=== PATIENT | male | born 1935 | race Caucasian/White ===

== ENCOUNTER 2021-06-14 11:09 | Emergency (ER) | payer MEDICARE ==
[~2021-06-14] VITALS: Ht 177.8 cm; Wt 84.0 kg
[2021-06-14 11:17] VITALS: BP 177/123
[2021-06-14] MEDS ORDERED: LISINOPRIL10 MG PO (11:25)
[2021-06-14] MEDS ORDERED: LORATADINE10 M1 PO (11:25)
[2021-06-14] MEDS ORDERED: ARICEPT PO (11:25)
[2021-06-14] MEDS ORDERED: TYLENOL500 MG PO (11:26)
[2021-06-14] MEDS ORDERED: ASPIRIN81 MG PO (11:26)
[2021-06-14] MEDS ORDERED: ALTOPREV40 MG PO (11:27)
[2021-06-14] MEDS ORDERED: NORVASC5 M1 PO (11:27)
[2021-06-14] MEDS ORDERED: TOPROL XL200 M1 PO (11:28)
[2021-06-14] MEDS ORDERED: MEMANTINE (11:28)
[2021-06-14] MEDS ORDERED: [UNRECOGNIZED DRUG - OTHER] (11:28)
[2021-06-14] MEDS ORDERED: QUETIAPINE FUMA25 MG PO (11:29)
[2021-06-14] MEDS ORDERED: WARFARIN5 MG PO (11:30)
[2021-06-14 11:31] VITALS: BP 144/94
[2021-06-14] MEDS ORDERED: FLEXERIL5 M1 PO (11:46)
[2021-06-14 12:02] VITALS: BP 147/99
[2021-06-14 12:05] VITALS: BP 147/99
== END 2021-06-14 12:05 | disposition home or self-care (01) ==
LOC: ED 11:09
DX: S56.912A Strain of unspecified muscles, fascia and tendons at forearm level, left arm, initial encounter (principal); I10 Essential (primary) hypertension; X58.XXXA Exposure to other specified factors, initial encounter; Y93.53 Activity, golf; Z85.46 Personal history of malignant neoplasm of prostate

== ENCOUNTER 2021-06-22 18:21 | Inpatient (IN) | payer MEDICARE ==
[~2021-06-22] VITALS: Ht 177.8 cm; Wt 87.0 kg
[2021-06-22] VITALS (10 sets, daily range): BP systolic 94–143; BP diastolic 58–84
[~2021-06-22 18:21] MED LIST: ALTOPREV40 MG PO; ARICEPT PO; ASPIRIN81 MG PO; FLEXERIL5 M1 PO; LORATADINE10 M1 PO; MEMANTINE PO; NORVASC5 M1 PO; QUETIAPINE FUMA25 MG PO; TOPROL XL200 M1 PO; TYLENOL500 MG PO; WARFARIN5 MG PO; ZESTRIL40 MG PO; [UNRECOGNIZED DRUG - OTHER] PO
--- NOTE | 2021-06-22 18:22 | NUR ---
PT TO ED ROOM 11 VIA WHEELCHAIR. PT UNABLE TO STAND, TRANSFERRED TO ED BED WITH 4 ED NURSES. PT REPOSITIONED IN BED AND CHANGED INTO GOWN. PT IN NO DISTRESS, BUT IS VERY DIAPHORETIC. COOL CLOTH APPLIED TO FOREHEAD. PT NOTED TO BE FEBRILE. PROVIDER NOTIFIED. PT'S AT THE BEDSIDE. PT STABLE.
[2021-06-22] MEDS ORDERED: ARNUITY EL50 MCG/ACT NS (18:39)
[2021-06-22 18:51] LABS: HEMATOCRIT 49.3 % (39.0-50.0); HEMOGLOBIN 16.2 g/dl (14.0-18.0); IMMATURE GRANULOCYTES 0.2 % (0.0-5.0); MEAN CELL VOLUME 85.7 fL CALC (80.0-100.0); MEAN CORPUSCULAR HGB 28.2 pG CALC (26.0-32.0); MEAN CORPUSCULAR HGB CONC 32.9 g/dL CAL (32.0-36.0); NEUT# 7.42 thou/uL (1.82-7.42); RED BLOOD COUNT 5.75 mill/uL (4.70-6.10)
[2021-06-22 19:02] LABS: ALBUMIN 4.5 g/dL (3.2-5.0); ALKALINE PHOSPHATASE 192 u/l (38-126); ANION GAP 19 (6-22 (CALC)); BILIRUBIN, TOTAL 5.6 mg/dL (0.0-1.4); BUN 28 mg/dL (8-23); BUN/CREATININE RATIO 21 (12-20 (CALC)); CARBON DIOXIDE 22 mmol/l (22-30); CHLORIDE 102 mmol/l (95-108); CREATININE 1.3 mg/dL (0.7-1.3); GFR 53 ML/MIN (>=60 (CALC)); GFR FOR AFR.AMER. > 60 ML/MIN (>=60 (CALC)); LIPASE 200 u/l (23-300); POTASSIUM 4.2 mmol/l (3.5-5.1); SGOT/AST 173 u/l (19-48); SODIUM 139 mmol/l (137-146); TOTAL PROTEIN 8.5 g/dL (6.3-8.2)
[2021-06-22 19:07] LABS: INTERNATIONAL NORMALIZED RATIO 2.5 RATIO (0.7-1.3); PROTHROMBIN TIME 25.1 SECONDS (9.0-12.5)
--- NOTE | 2021-06-22 19:08 | NUR ---
PT BACK FROM IMAGING AND PT'S AND DAUGHTER AT THE BEDSIDE. PT'S SKIN PWD AT THIS TIME, NO LONGER DIAPHORETIC. PT MORE ALERT AND SPEAKING MORE CLEARLY. PT STABLE AT THIS TIME, WILL CONTINUE TO MONITOR.
[2021-06-22 19:14] LABS: MYOGLOBIN 98 ng/mL (0 - 121)
[2021-06-22 19:28] LABS: URINE BLOOD DIPSTICK MODERATE (NEGATIVE); URINE GLUCOSE - DIPSTICK 100 mg/dL (NEGATIVE); URINE KETONE NEGATIVE (NEGATIVE); URINE LEUK ESTERASE NEGATIVE (NEGATIVE); URINE PROTEIN - DIPSTICK >=300 mg/dL (NEG-TRACE); URINE SPECIFIC GRAVITY >=1.030; URINE UROBILINOGEN - DIPSTICK 0.2 E.U./dL (0.2)
[2021-06-22 19:29] LABS: URINE BILIRUBIN - DIPSTICK MODERATE (NEGATIVE)
[2021-06-22 19:30] LABS: URINE COLOR DK. YELLOW; URINE NITRITE - DIPSTICK NEGATIVE (Negative)
--- NOTE | 2021-06-22 19:30 | NUR ---
CHARTED IN MED RESPONSE 1000MG TYLENOL GIVEN, 650 WAS ADMINISTERED ORDER
[2021-06-22 19:36] LABS: URINE WBC 0-2 WBC/hpf (0-5)
--- NOTE | 2021-06-22 20:05 | NUR ---
Reassessment of patient completed. No distress noted.
--- NOTE | 2021-06-22 21:05 | NUR ---
DR COX IN TO SPEAK WITH PT AND HIS TO DISCUSS RESULTS AND POC. PT TO BE ADMITTED. PT AND AGREEABLE WITH POC. PT'S VSS, SKIN, PWD, BREATHING UNLABORED AND EVEN. PT TAKING IN PO FLUIDS. PT STABLE, WILL CONTINUE TO MONITOR.
--- NOTE | 2021-06-22 21:54 | NUR ---
CALL PLACED TO MED/SURG TO GIVE SBAR. RN WILL CALL BACK SHORTLY. PT COMFORTABLE AT THIS TIME. VSS. DENIES NEEDS.
--- NOTE | 2021-06-22 22:09 | NUR ---
SBAR REPORT GIVEN TO NOHEMI BALDWIN MED/SURG.
--- NOTE | 2021-06-22 22:14 | NUR ---
PT TAKEN TO MED/SURG WITH AUDIOVISUAL TECHNICIAN IN PLACE VIA STRETCHER. PT IN STABLE CONDITION AT TIME OF ADMISSION. ALL BELONGINGS AND PAPERWORK HANDED OFF TO STAFF.
--- NOTE | 2021-06-22 23:39 | NUR ---
ADMITTED TO ROOM 260 FROM ED IN STABLE CONDITION. A/O X 3 DOES HAVE SOME FORGETFULLNESS. RESPIRATIONS EVEN AND UNLABORED. LUNGS CLEAR. BS ACTIVE BELLY SOFT AND ROUND. NO BLE EDEMA NOTED. PIV WDL. EDUCTED PT ON NEED TO CALL FOR ASSIST OOB, STATES UNDERSTANDING, BED ALARM ACTIVE. CALL ROBB IN REACH SIDE RAILS UP.
[2021-06-23] VITALS (12 sets, daily range): BP systolic 117–163; BP diastolic 74–94
--- NOTE | 2021-06-23 00:32 | NUR ---
RESTING IN BED EYES CLOSED VSS
[2021-06-23 05:02] LABS: HEMATOCRIT 44.8 % (39.0-50.0); HEMOGLOBIN 14.5 g/dl (14.0-18.0); MEAN CELL VOLUME 88.2 fL CALC (80.0-100.0); MEAN CORPUSCULAR HGB 28.5 pG CALC (26.0-32.0); MEAN CORPUSCULAR HGB CONC 32.4 g/dL CAL (32.0-36.0); RED BLOOD COUNT 5.08 mill/uL (4.70-6.10); RED CELL DISTRI WIDTH 15.3 % (11.5-15.5)
[2021-06-23 05:24] LABS: INTERNATIONAL NORMALIZED RATIO 2.1 RATIO (0.7-1.3); PROTHROMBIN TIME 21.3 SECONDS (9.0-12.5)
[2021-06-23 05:33] LABS: ALBUMIN 3.3 g/dL (3.2-5.0); ALKALINE PHOSPHATASE 143 u/l (38-126); ANION GAP 12 (6-22 (CALC)); BILIRUBIN, TOTAL 3.7 mg/dL (0.0-1.4); BUN 23 mg/dL (8-23); BUN/CREATININE RATIO 20 (12-20 (CALC)); CARBON DIOXIDE 21 mmol/l (22-30); CHLORIDE 110 mmol/l (95-108); CREATININE 1.2 mg/dL (0.7-1.3); GFR 58 ML/MIN (>=60 (CALC)); GFR FOR AFR.AMER. > 60 ML/MIN (>=60 (CALC)); POTASSIUM 3.9 mmol/l (3.5-5.1); SGOT/AST 98 u/l (19-48); SODIUM 139 mmol/l (137-146); TOTAL PROTEIN 6.2 g/dL (6.3-8.2)
--- NOTE | 2021-06-23 06:48 | NUR ---
CALLED FOR STAT EKG. PT WAS SHIVERING THROUGHOUT TEST, AND MULTIPLE ATTEMPTS TO GET THE BEST TRACING. RN UPDATED ON TRACING.
--- NOTE | 2021-06-23 06:53 | NUR ---
HR 120-150 DR BOWERS NOTIFED. STAT EKG OBTAINED PT IN AFIB RVR. HAS HX OF AFIB RVR. PT DOES HAVE TEMP AND IS SHIVERING GREATLY. MEDICATED WITH TYLENOL PER MD TO SEE IF SHIVERING WILL STOP, NO C/O CHEST PAIN AT THIS TIME.
--- NOTE | 2021-06-23 07:00 | NUR ---
RECIEVED REPORT FROM NOHEMI PENALOZA. PT SLEEPING IN SEMI FOWLERS POSITION. TELE MONITORING IN PLACE, AFIB RVR PER ER MONITORING. DR BOWERS INFORMED. ORDERS IN PLACE. NO SIGNS OF ANY DISTRESS. WILL CONTINUE TO MONITOR.
--- NOTE | 2021-06-23 08:01 | NUR ---
PT RESTING IN SEMI FOWLERS POSITION. PT A/OX3. ASSESSMENT AND VITALS COMPLETED. RESPIRATIONS EVEN AND UNLABORED ON ROOM AIR. LUNG SOUNDS CLEAR. HEART RHYTHM IRREGULAR WITH TELE MONITORING IN PLACE. AFIB PER ER MONITORING. BOWEL SOUNDS ACTIVE. #20G LAC INFUSING WITH IVF PER ORDER, SITE PATENT. SKIN INTACT. PT DENIES OF ANY PAINS AT THIS TIME. ALL SAFTEY PRECAUTIONS ARE IN PLACE WITH CALL LIGHT IN REACH. PT INSTRUCTED TO CALL FOR ASSISTANCE.,
--- NOTE | 2021-06-23 09:40 | NUR ---
DR BOWERS AT BEDSIDE
--- NOTE | 2021-06-23 10:07 | NUR ---
PT TRANSPORTED TO ULTRASOUND VIA WHEELCHAIR ACCOMPAINED BY KE SAHA
--- NOTE | 2021-06-23 10:23 | NUR ---
INFORMED BY RADIOLOGY THAT MRI IS UNABLE TO BE COMPLETED DUE TO PENILE IMPLANT. DR BOWERS INFORMED.
--- NOTE | 2021-06-23 11:19 | NUR ---
PT BACK IN ROOM. RESTING IN SEMI FOWLERS POSITION. RESPIRATIONS EVEN AND UNLABORED. TELE MONITORING IN PLACE. IV INFUSING PER ORDER, SITE PATENT. PT DENIES OF ANY NEEDS. ALL SAFTEY PRECAUTIONS IN PLACE. PT REMAINS NPO
--- NOTE | 2021-06-23 11:55 | NUR ---
ENGINEERING DEPARTMENT CHAIR INFROMED BY KENZIE IN LAB OF [facility] IN 03.02. DR ELISSA CHASE.
--- NOTE | 2021-06-23 12:40 | NUR ---
PT RESTING IN SEMI FOWLERS POSITION.FAMILY AT BEDSIDE. DR YIP CONSULT COMPLETED AT THIS TIME. IV REMAINS INFUSING WITH IVF PER ORDER, SITE PATENT. TELE MONITORING IN PLACE. PT DENIES OF ANY NEEDS. ALL SAFTEY PRECAUTIONS IN PLACE WITH CALL LIGHT IN REACH.
--- NOTE | 2021-06-23 13:57 | NUR ---
PT TRANSPORTED TO MRI VIA WHEELCHAIR ACCOMPAINED BY STAFF
--- NOTE | 2021-06-23 14:30 | NUR ---
PT ARRIVED BACK FROM MRI. ASSISTED BACK INTO BED. TELE IN PLACE. DENIES OF ANY NEEDS. ALL SAFTEY PRECAUTIONS IN PLACE.
--- NOTE | 2021-06-23 14:30 | NUR ---
PT ARRIVED BACK FROM MRI. ASSISTED BACK INTO BED. DENIES OF ANY NEEDS. ALL SAFTEY PRECAUTIONS IN PLACE.
--- NOTE | 2021-06-23 15:45 | NUR ---
PT RESTING IN SEMI FOWLERS POSITION WITH FAMILY AT BEDSIDE. REPSIRATIONS EVEN AND UNLABORED ON ROOM AIR. #20G LAC REMAINS INFUSING WITH IVF PER ORDER, SITE PATENT. TELE MONITORING IN PLACE. PT DENIES OF ANY NEEDS AT THIS TIME. ALL SAFTEY PRECAUTIONS ARE IN PLACE WITH CALL LIGHT IN REACH.
--- NOTE | 2021-06-23 15:45 | NUR ---
PT RESTING IN SEMI FOWLERS POSITION WITH FAMILY AT BEDSIDE. REPSIRATIONS EVEN AND UNLABORED ON ROOM AIR. #20G LAC REMAINS INFUSING WITH IVF PER ORDER, SITE PATENT. PT DENIES OF ANY NEEDS AT THIS TIME. ALL SAFTEY PRECAUTIONS ARE IN PLACE WITH CALL LIGHT IN REACH.
--- NOTE | 2021-06-23 16:44 | NUR ---
SURVEY RESEARCH TEACHER INFORMED OF PT OFF TELE. PT IN BATHROOM AT THE TIME. WHEN BACK IN BED, SURVEY RESEARCH TEACHER ATTEMPTED TO REAPPLY TELE. NO TELE FOUND. PT STATES TEHY TOOK TELE OFF DOWN STAIRS. RADIOLOGY CALLED, SURVEY RESEARCH TEACHER INFORMED THEY DID HAVE A TELE BUT THOUGHT THEY BROUGHT IT UP. TELE #9 NOT FOUND. ER INFORMED IN ATTEMPTED TO REAPPLIED DIFFERENT BOX UNTIL ORIGINAL BOX FOUND.
--- NOTE | 2021-06-23 17:00 | NUR ---
TELE FOUND. PT REQUESTING TO SHOWER AT THIS TIME. PT SET UP FOR SHOWER. INSTRUCTED PT TO CALL WHEN FINISHED TO REAPPLY TELE. PT VERBALIZED UNDERSTANDING.
--- NOTE | 2021-06-23 18:30 | NUR ---
PT TRANSFERED TO ROOM 281 VIA BED IN STABLED CONDITION. REGISTRATION AND ER INFORMED OF TRANSFER.
--- NOTE | 2021-06-23 19:56 | NUR ---
RESTING IN BED. VS STABLE HR 110 AT THIS TIME. A/OX4 RESPIRATIONS EVEN AND UNLABORED. CRACKLES TO LUNG BASES. BS ACTIVE BELLY SOFT AND ROUND. NO BLE EDEMA NOTED. PIV WDL. BED LOW AND LOCKED CALL ROBB IN REACH SIDE RAILS UP.
--- NOTE | 2021-06-23 21:40 | NUR ---
NOTIFIED BY TELE MONITOR OF HR 150-180 ENTERED ROOM PT WAS UP TO BATHRROM. RETURNED PT TO BED AND EDUCATED ON HR, PT ASYMPTOMATIC. DR DESAI NOTIFIED T/O VERIFIED AND READ BACK FOR METOPROLOL 5MG IV Q6HR PRN HR GREATER THAN 110 AND SYSTOLIC GREATER THAN 120
--- NOTE | 2021-06-23 22:32 | NUR ---
PER NURSING DRUG ROOM OPERATOR SUKHI HE WANTS PT MOVED TO ICU ROOM 3 . STATES HE DOES NOT WANT TO WAIT AND SEE IF METOPROLOL WORKS PER MD ORDER
--- NOTE | 2021-06-23 22:40 | NUR ---
rec'd to icu3 per carmelita from [facility]. report rec'd per chaparrita singh. property assessment monitor shows a fib pvcs hr 130. o2 began @ 2 l/m per nc. ivf began as ordered. oriented to room. bed alarm activated.
--- NOTE | 2021-06-23 22:51 | NUR ---
PT TRANSFERED TO ICU
[2021-06-24] VITALS (20 sets, daily range): BP systolic 115–154; BP diastolic 66–113
--- NOTE | 2021-06-24 00:01 | NUR ---
bed alarm sounding. pt asked "how do i put this in reverse." attempted to reoirient with slight success.
--- NOTE | 2021-06-24 01:30 | NUR ---
bed alarm sounded. pt attempted to void without success.
--- NOTE | 2021-06-24 04:30 | NUR ---
bed alarm sounding. pt voided per urinal then assisted back to bed. bed alarm reactivated.
[2021-06-24 05:49] LABS: INTERNATIONAL NORMALIZED RATIO 1.7 RATIO (0.7-1.3); PROTHROMBIN TIME 16.8 SECONDS (9.0-12.5)
[2021-06-24 05:53] LABS: ALBUMIN 3.3 g/dL (3.2-5.0); ALKALINE PHOSPHATASE 150 u/l (38-126); ANION GAP 10 (6-22 (CALC)); BILIRUBIN, TOTAL 2.5 mg/dL (0.0-1.4); BUN 15 mg/dL (8-23); BUN/CREATININE RATIO 17 (12-20 (CALC)); CARBON DIOXIDE 24 mmol/l (22-30); CHLORIDE 106 mmol/l (95-108); CREATININE 0.9 mg/dL (0.7-1.3); DIRECT BILIRUBIN 0.1 mg/dl (0.0-0.3); GFR > 60 ML/MIN (>=60 (CALC)); GFR FOR AFR.AMER. > 60 ML/MIN (>=60 (CALC)); POTASSIUM 3.4 mmol/l (3.5-5.1); SGOT/AST 52 u/l (19-48); SODIUM 137 mmol/l (137-146); TOTAL PROTEIN 6.3 g/dL (6.3-8.2)
--- NOTE | 2021-06-24 05:53 | NUR ---
awake. sitting on side of bed. no distress.
--- NOTE | 2021-06-24 06:02 | NUR ---
pts hr 140's while voiding.
--- NOTE | 2021-06-24 07:10 | NUR ---
pt awake in bed; no apparent distress noted; pt offers no complaints; assessment completed at this time; pt alert to person and state only; confusion noted; pt denies pain; no n/v noted; resp even and unlabored; lungs clear bilat; skin color wnl; ra; hr irreg; strong pulses; no edema noted; afib on monitor; abd soft with bs present; no bm noted per flex o writer operator; pt admits to "discomfort" after urination; discomfort noted as frequentcy/ urgency to urinate after urination; no urine to inspect at this time; urinal at bedside; #20 patent to lac with ivf infusing without complication; no redness or edema noted at site; plan of care/ am meds explained; increased visual observation for pt safety; call light within reach; will continue to monitor
--- NOTE | 2021-06-24 08:11 | NUR ---
pt awake in bed reading book; no apparent distress noted; afib on monitor; call light within reach; will continue to monitor
--- NOTE | 2021-06-24 08:20 | NUR ---
lab present at bedside
[2021-06-24 08:35] LABS: HEMATOCRIT 42.7 % (39.0-50.0); IMMATURE GRANULOCYTES 0.7 % (0.0-5.0); MEAN CELL VOLUME 86.1 fL CALC (80.0-100.0); MEAN CORPUSCULAR HGB 28.2 pG CALC (26.0-32.0); MEAN CORPUSCULAR HGB CONC 32.8 g/dL CAL (32.0-36.0); NEUT# 5.63 thou/uL (1.82-7.42); RED BLOOD COUNT 4.96 mill/uL (4.70-6.10); RED CELL DISTRI WIDTH 15.3 % (11.5-15.5)
--- NOTE | 2021-06-24 08:40 | NUR ---
Dr Medina present at bedside to assess pt and discuss plan of care
--- NOTE | 2021-06-24 09:07 | NUR ---
spouse called per verse writer; updated on trasnsfer during the night and plan of care
--- NOTE | 2021-06-24 10:10 | NUR ---
pt awake in bed; offers no complaints; no apparent distress noted; afib/pvc on monitor; iv intact and patent; call light within reach; will continue to monitor
--- NOTE | 2021-06-24 12:01 | NUR ---
pt awake in bed; pt request to wait for spouse arrival to have lunch; iv intact and patent; afib on monitor; call light within reach; will continue to monitor;
--- NOTE | 2021-06-24 14:15 | NUR ---
awake in bed; family x2 present at bedside; iv intact and patent; afib/pvc on monitor; call light within reach; will continue to monitor
--- NOTE | 2021-06-24 16:07 | NUR ---
awake in bed; family at bedside; afib on monitor; iv intact and patent; call light within reach; will continue to monitor
--- NOTE | 2021-06-24 17:57 | NUR ---
awake, sitting at the side of bed eating dinner; no apparent distress noted; afib on monitor; iv intact and patent; call light within reach
--- NOTE | 2021-06-24 19:10 | NUR ---
PATIENT RESTING IN BED. ALERT WITH FORGETFULNESS. ABLE TO MAKE NEEDS KNOWN. ASSESSMENT COMPLETE. NO SIGNS OF DISTRESS. NO COMPLAINTS OF PAIN. AMBULATES WITH STAND BY ASSIST. NEEDS FREQUENT REMINDING TO ASK FOR ASSISTANCE WITH AMBULATION. BED IN LOW POSITION. CALL LIGHT AND BELONGINGS WITHIN REACH.
[2021-06-25] VITALS (18 sets, daily range): BP systolic 114–146; BP diastolic 68–95
--- NOTE | 2021-06-25 | NUR ---
BED ALARM SOUNDING. PATIENT OBSERVED SITTING ON SIDE OF BED. PATIENT THOUGHT IT WAS MORNING TIME. REDIRECTED PATIENT AND EXPLAINED IT WAS MIDNIGHT. PATIENT MENTIONED NEEDING TO USE RESTROOM. ASSISTED PATIENT TO RESTROOM. PATIENT WANTED TO TAKE HIMSELF BUT HE IS UNSTEADY ON HIS FEET. THIS NURSE INFORMED PATIENT FOR SAFETY PURPOSES HE NEEDS STAFF PRESENT TO HELP WITH AMBULATION. BED IN LOW POSITION, CALL LIGHT IN REACH. BED ALARM REMAINS ACTIVE.
--- NOTE | 2021-06-25 04:16 | NUR ---
PATIENT RESTING IN BED. NO DISTRESS NOTED. NO COMPLAINTS OF PAIN VOICED. CALL LIGHT REMAINS IN REACH. BED IN LOW POSITION. BED ALARM REMAINS ACTIVE.
[2021-06-25 05:42] LABS: HEMATOCRIT 42.6 % (39.0-50.0); HEMOGLOBIN 14.2 g/dl (14.0-18.0); IMMATURE GRANULOCYTES 0.5 % (0.0-5.0); MEAN CELL VOLUME 85.5 fL CALC (80.0-100.0); MEAN CORPUSCULAR HGB 28.5 pG CALC (26.0-32.0); MEAN CORPUSCULAR HGB CONC 33.3 g/dL CAL (32.0-36.0); NEUT# 3.93 thou/uL (1.82-7.42); RED BLOOD COUNT 4.98 mill/uL (4.70-6.10); RED CELL DISTRI WIDTH 15.3 % (11.5-15.5)
[2021-06-25 06:01] LABS: INTERNATIONAL NORMALIZED RATIO 1.7 RATIO (0.7-1.3); PROTHROMBIN TIME 17.2 SECONDS (9.0-12.5)
[2021-06-25 06:09] LABS: ALBUMIN 3.1 g/dL (3.2-5.0); ALKALINE PHOSPHATASE 134 u/l (38-126); ANION GAP 9 (6-22 (CALC)); BILIRUBIN, TOTAL 2.2 mg/dL (0.0-1.4); BUN 14 mg/dL (8-23); BUN/CREATININE RATIO 17 (12-20 (CALC)); CARBON DIOXIDE 27 mmol/l (22-30); CHLORIDE 105 mmol/l (95-108); CREATININE 0.8 mg/dL (0.7-1.3); GFR > 60 ML/MIN (>=60 (CALC)); GFR FOR AFR.AMER. > 60 ML/MIN (>=60 (CALC)); LIPASE 159 u/l (23-300); POTASSIUM 3.2 mmol/l (3.5-5.1); SGOT/AST 33 u/l (19-48); SODIUM 137 mmol/l (137-146); TOTAL PROTEIN 6.1 g/dL (6.3-8.2)
--- NOTE | 2021-06-25 07:30 | NUR ---
pt awake in bed; no apparent distress noted; pt offers no complaints; assessment completed at this time; pt alert and oriented; denies pain; no n/v noted; resp even and unlabored; lungs clear bilat; skin color wnl; o2 per nc at 2L; hr irreg; strong pulses; no edema noted; afib on monitor; abd soft with bs present; no bm noted per inspector automatic typewriter; no urine to inspect at this time; urinal at bedside; #20 patent to lac with ivf infusing without complication; no redness or edema noted at site; plan of care/ am meds explained; pt assisted to bathroom as per req for bm; no bm noted; pt placed in recliner for breakfast; call light within reach; will continue to monitor
--- NOTE | 2021-06-25 07:53 | NUR ---
awake in recliner; no distress noted; afib on monitor; family x2 at bedside awaiting MD arrival; will continue to monitor
--- NOTE | 2021-06-25 08:31 | NUR ---
Dr Medina present at bedside to assess pt and discuss plan of care; family at bedside
--- NOTE | 2021-06-25 10:04 | NUR ---
pt assisted back to bed; offers no complaints; iv intact and patent; no redness or edema noted at site; afib on monitor; family present at bedside; call light within reach; will continue to monitor
--- NOTE | 2021-06-25 12:00 | NUR ---
awake sitting at the side of the bed eating lunch; no apparent distress noted; iv intact and patent; afib on monitor; family at bedside; call light within reach; will continue to monitor
--- NOTE | 2021-06-25 13:53 | NUR ---
report provided to Valeriano Flores RN; pt to transfer to med surg tele 260
--- NOTE | 2021-06-25 14:00 | NUR ---
resting in bed with eyes closed; no apparent distress noted; easily aroused; offers no complaints; iv intact and patent; no redness or edema noted at site; afib on monitor; family at bedside; pt and family updated on plan of care for transfer to [facility]
--- NOTE | 2021-06-25 14:24 | NUR ---
pt transferred to med surg tele 260 with belongings; iv intact; bedside update provided to Valeriano Flores RN; family remains with pt;
--- NOTE | 2021-06-25 14:45 | NUR ---
PT ARRIVES TO ROOM 260 IN MED/SURG BY WHEELCHAIR, ACCOMPANIED BY HIS , DAUGHTER AND NOHEMI MERAZ. PT IS ALERT, ORIENTED X 2-3 WITH HX DEMENTIA. PT IS COOPERATIVE WITH ASSESSMENT. HR SEEN TO BE AFIB WITH CONTROLLED RATE.
--- NOTE | 2021-06-25 19:34 | NUR ---
PATIENT SITTING UP IN BED AT THIS TIME WATCHING TV. AWAKE ALERT AND ORIENTEDX3. PATIENT WITH NO COMPLAINTS AT THIS TIME. TELE MONITOR IN PLACE. IVF NS PATENT AND INFUSING VIA LAC SITE AT 50CC/HR. SITE IS HEALTHY AT THIS TIME. SAFETY PRECAUTIONS REINFORCED. CALL LIGHT IN REACH. WILL CONT TO MONITOR.
--- NOTE | 2021-06-25 20:56 | NUR ---
PATIENT RESTING IN BED-AWAKE AND ALERT. MEDICATED WITH TOPROL XL SCHEDULED. IVF PATENT AND INFUSING VIA LAC SITE AT 50CC/HR. SITE REMAINS HEALTHY. LUNGS ARE CLEAR. ABD IS SOFT WITH ACTIVE BS-HAD MOM ON DAYSHIFT. NO PERIPHERAL EDEMA NOTED. TELE MONITOR IN PLACEWITH LAST READINGS A-FIB 70'S.NO COMPLAINTS AT THIS TIME. SAFETY PRECAUTIONS REINFORCED. CALL LIGHT IN REACH. WILL CONT TO MONITOR.
--- NOTE | 2021-06-25 23:53 | NUR ---
PATIENT RESTING IN BED POSITIONED ON RIGHT SIDE. EYES ARE CLOSED AND RESPS ARE EVEN AND UNLABORED. IVF PPATENT AND INFUING VIA LAC AT 50CC/HR, ZOSYN HUNG ORDERED. TELE MONITOR IN PLACE. CALL LIGHT IN REACH. WILL CONT TO MONITOR.
--- NOTE | 2021-06-26 02:03 | NUR ---
PATIENT UP TO THE BR TO TRY TO HAVE BM WITHOUT ANY SUCESS. VOIDING QS IN URINAL. ASKING FOR LAXATVIE AND MEDICATED WITH MOM 30CC AND 4 OZ OF PRUNE JUICE. STATES THAT HE I S FEELING WARM-TEMP WAS 98.2. TELE MONITOR IN PLACE. IVF NS PATENT AND INFUSING VIA LAC SITE AT 50CC/HR. CALL LIGHT IN REACH. WILL CONT TO MONITOR.
--- NOTE | 2021-06-26 03:20 | NUR ---
RECIEVED CALL FROM ER STATING THAT THE PATIEN HR WAS UP IN 130'S. RESPONDED TO PAIENT ROOM AND FOUND PATIENT IN BR HAVING BM. NEEDS NO ASSISTANCE AT THIS TIME WITH CONT TO MONITOR.
[2021-06-26 03:51] VITALS: BP 126/83
--- NOTE | 2021-06-26 04:43 | NUR ---
PATIENT BACK UP TO THE BR FOR ANOTHER BM. WILL CONT TO MONITOR.
[2021-06-26 05:17] LABS: HEMATOCRIT 49.2 % (39.0-50.0); HEMOGLOBIN 16.2 g/dl (14.0-18.0); IMMATURE GRANULOCYTES 0.9 % (0.0-5.0); MEAN CELL VOLUME 85.9 fL CALC (80.0-100.0); MEAN CORPUSCULAR HGB 28.3 pG CALC (26.0-32.0); MEAN CORPUSCULAR HGB CONC 32.9 g/dL CAL (32.0-36.0); NEUT# 5.49 thou/uL (1.82-7.42); RED BLOOD COUNT 5.73 mill/uL (4.70-6.10); RED CELL DISTRI WIDTH 15.3 % (11.5-15.5)
[2021-06-26 05:32] LABS: INTERNATIONAL NORMALIZED RATIO 1.9 RATIO (0.7-1.3); PROTHROMBIN TIME 19.4 SECONDS (9.0-12.5)
[2021-06-26 05:46] LABS: ALKALINE PHOSPHATASE 174 u/l (38-126); ANION GAP 14 (6-22 (CALC)); BILIRUBIN, TOTAL 2.1 mg/dL (0.0-1.4); BUN 15 mg/dL (8-23); BUN/CREATININE RATIO 17 (12-20 (CALC)); CARBON DIOXIDE 27 mmol/l (22-30); CHLORIDE 104 mmol/l (95-108); CREATININE 0.9 mg/dL (0.7-1.3); GFR > 60 ML/MIN (>=60 (CALC)); GFR FOR AFR.AMER. > 60 ML/MIN (>=60 (CALC)); MAGNESIUM 2.3 mg/dL (1.6-2.3); POTASSIUM 3.6 mmol/l (3.5-5.1); SGOT/AST 41 u/l (19-48); SODIUM 141 mmol/l (137-146); TOTAL PROTEIN 7.5 g/dL (6.3-8.2)
[2021-06-26 07:53] VITALS: BP 142/90
--- NOTE | 2021-06-26 08:14 | NUR ---
MARISATT CHANGE REPORT, PT AWAKE ALERT AND ORIENTED, NO C/O DISCOMFORT, STATES HE IS RELIEVED AT THIS TIME FROM ABD PAIN AND DISCOMFORT FROM NOT HAVING BM IN FEW DAYS AND JUST NOW HAD A LARGE ONE. TELE MONITOR IN PLACE, IVF INFUSING, CALL ROBB IN REACH AND BED LOCKED IN LOWEST POSITION.
[2021-06-26 10:17] VITALS: BP 143/96
--- NOTE | 2021-06-26 12:00 | NUR ---
SET UP FOR SHOWER AFTER BOWEL ACCIDENT IN ROOM, PT FOUND CLEANING UP BM FROM FLOOR AND WAS ADVISED STAFF WOULD ADDRESS CONDITION.
--- NOTE | 2021-06-26 16:00 | NUR ---
FAMILY MEMBERS IN ROOM VISITING AND ASKING ABOUT SURGEONS CONSULT, INFORMED STAFF WUOLD UPDATE WITH ANY NEW ORDERS. PT RESTING IN BED COMFORTABLY, ALL NEEDS ADDRESSED.
--- NOTE | 2021-06-26 20:00 | NUR ---
PATIENT RESTING IN BED AT THIS TIME-AWAKE ALERT AND ORIENTEDX3. NO COMPLAINTS AT THIS ITME,. IVF NS PATENT AND INFUSING VIA LAC SITE AT 50CC/HR. SITE REMAINS HEALTHY AT THIS TIME. TELE MONITOR IN PLACE WITH LAST READING A-FIB 85. LUNGS ARE CLEAR, ABD IS SOFT WITH ACTIVE BS-HAVING LOOSE STOOLS TODAY. DENIES ANY DIFFICULTY WITH URINATION. NO PERIPHERAL EDEMA NOTED. CALL LIGHT IN REACH. WILL CONT TO MONITOR.
[2021-06-26 20:03] VITALS: BP 158/88
--- NOTE | 2021-06-26 23:42 | NUR ---
RECIEVED CALL FROM CLIFF BOGGS IN ER THAT PATIENT TELE IS READING A-FIB 140'S. RESPONDED TO PATIENT ROOM TO FIND PATIENT OOB TRYING TO TURN HIS IV PUMP OFF BECAUSE IT IS PEEPING COMPLETE. PATIENT IS ALSO CONFUSED AND THINKS THAT HE IS AT HIS FRIENDS HOUSE. PATIENT ASSISTED BACK TO BED AND REOIRENTED TO PLACE AND TIME. IV ZOSYN HUNG ORDERED. VS TAKEN AND RECORDED. HR IS NOW BACK DOWN INTO THE 90'S. BED ALARM IN PLACE FOR PATIENT SAFETY. CALL LIGHT IN REACH. WILL CONT TO MONITOR,
[2021-06-27] VITALS (8 sets, daily range): BP systolic 135–154; BP diastolic 77–100
--- NOTE | 2021-06-27 02:30 | NUR ---
RECIEVED CALL FROM CLIFF IN ER-13 BEAT RUN OF V-TACH. RESPONDED TO PATIENT ROOM. PATIENT ASYMPTOMATIC AND VS TAKEN AND RECORDED. TELE NOW READING A-FIB 80-90'S. IVF PATENT AND INFUSING VIA LAC AT 50CC/HR. SAFETY PRECAUTIONS REINFORCED. BED ALARM IN PLACE FOR PATIENT SAFETY. CALL LIGHT IN REACH. WILL CONT TO MONITOR.
[2021-06-27 05:42] LABS: HEMOGLOBIN 14.9 g/dl (14.0-18.0); IMMATURE GRANULOCYTES 1.4 % (0.0-5.0); MEAN CELL VOLUME 87.2 fL CALC (80.0-100.0); MEAN CORPUSCULAR HGB 28.9 pG CALC (26.0-32.0); MEAN CORPUSCULAR HGB CONC 33.1 g/dL CAL (32.0-36.0); NEUT# 4.37 thou/uL (1.82-7.42); RED BLOOD COUNT 5.16 mill/uL (4.70-6.10); RED CELL DISTRI WIDTH 15.5 % (11.5-15.5)
[2021-06-27 05:46] LABS: INTERNATIONAL NORMALIZED RATIO 2.4 RATIO (0.7-1.3); PROTHROMBIN TIME 23.4 SECONDS (9.0-12.5)
--- NOTE | 2021-06-27 05:48 | NUR ---
PATIENT RESTING IN BED-IVF PATENT ANDINFUSING VIA LAC SITE. ZOSYN HUNG ORDERED. SAFETY PRECAUTIONS REINFORCED. CALL LIGHT IN REACH. WILL CONT TO MONITOR. M
[2021-06-27 05:59] LABS: ALBUMIN 3.3 g/dL (3.2-5.0); ALKALINE PHOSPHATASE 158 u/l (38-126); ANION GAP 12 (6-22 (CALC)); BILIRUBIN, TOTAL 1.3 mg/dL (0.0-1.4); BUN 13 mg/dL (8-23); BUN/CREATININE RATIO 16 (12-20 (CALC)); CARBON DIOXIDE 26 mmol/l (22-30); CHLORIDE 106 mmol/l (95-108); CREATININE 0.8 mg/dL (0.7-1.3); GFR > 60 ML/MIN (>=60 (CALC)); GFR FOR AFR.AMER. > 60 ML/MIN (>=60 (CALC)); POTASSIUM 3.9 mmol/l (3.5-5.1); SGOT/AST 35 u/l (19-48); SODIUM 140 mmol/l (137-146); TOTAL PROTEIN 6.3 g/dL (6.3-8.2)
--- NOTE | 2021-06-27 07:00 | NUR ---
RECIEVED REPORT FROM NOHEMI ZAVALA
--- NOTE | 2021-06-27 08:02 | NUR ---
PT SLEEPING IN LOW FOWLERS POSITION. PT AWAKENS TO SPEECH. PT IS A/OX3. ASSESSMENT AND VITALS COMPLETED. RESPIRATIONS EVEN AND UNLABORED ON ROOM AIR. LUNG SOUNDS CLEAR. HEART RHYTHM NORMAL WITH TELE IN PLACE. BOWEL SOUNDS ACTIVE. #20G LAC INFUSING WITH IVF PER ORDER, SITE PATENT. SKIN INTACT. PULSE STRONG.PT DENIES OF ANY PAINS OR DISCOMFORTS AT THIS TIME. PT NPO FOR NUCLEAR MED TEST. PT VERBLAIZED UNDERSTANDING. PT DENIES OF ANY ADDITIONAL NEEDS. ALL SAFTEY PRECAUTIONS IN PLACE WITH CALL LIGHT IN REACH.
--- NOTE | 2021-06-27 09:39 | NUR ---
OT screen performed. OT services not necessary at this time.
--- NOTE | 2021-06-27 09:50 | NUR ---
DR CHANEL AT BEDSIDE
--- NOTE | 2021-06-27 11:16 | NUR ---
PT TRANSPORT PT TO NUCLEAR MED VIA WHEELCHAIR IN STABLE CONDITION
--- NOTE | 2021-06-27 13:00 | NUR ---
PT RESTING IN SEMI FOWLERS POSITION. RESPIRATIONS EVEN AND UNLABORED ON ROOM AIR. #20G LAC LEAKING. NEW#22G RFA STARTED, SITE PATENT. TELE MONITORING IN PLACE. PT DENIES OF ANY PAINS OR DISCOMFORTS. ALL SAFTEY PRECAUTIONS IN PLACE WITH CALL LIGHT IN REACH.
--- NOTE | 2021-06-27 16:15 | NUR ---
DR IBARRA AT BEDSIDE
--- NOTE | 2021-06-27 16:17 | NUR ---
PT RESTING IN SEMI FOWLERS POSITION WITH FAMILY AT BEDSIDE. RESPIRATIONS EVEN AND UNLABORED ON ROON AIR. #22G RFA PATENT. TELE IN PLACE. PT DENIES OF ANY NEEDS. ALL SAFTEY PRECAUTIONS IN PLACE WITH CALL LIGHT IN REACH.
[2021-06-27] MEDS ORDERED: AMOX/K CLAV875 M1 PO (16:43)
--- NOTE | 2021-06-27 17:41 | NUR ---
PT AND FAMILY EDUCATED ON DC INSTRUCTIONS AND NEW MEDICATIONS. PT VERBLAIZED UNDERSTANDING. IV REMOVED WITH CATH STILL INTACT. PT GETTING DRESSED
--- NOTE | 2021-06-27 17:56 | NUR ---
Discharge instructions given. Patient verbalizes understanding of same. Discharged in stable condition via Wheelchair to Home with staff. All belongings sent with pt.
--- NOTE | 2021-06-28 16:55 | NUR ---
The patient is seen for PT evaluation. he demosntrated DGI of 11/12 and ambulated throughout the room without difficulty
== END 2021-06-27 18:00 | disposition home or self-care (01) | DRG 872 ==
LOC: ED 18:21 → ED-I 21:00 → ED 21:13 → MS2 21:14 → ICU 21:14 → MS2 21:14 → ICU 06-23 22:32 → MS2 06-25 14:32
PROVIDERS: Hospitalist; Internal Medicine; Nurse Practitioner; ADMIT Internal Medicine; ATTEND Internal Medicine
DX: A41.9 Sepsis, unspecified organism (principal); E87.2 Acidosis; D69.6 Thrombocytopenia, unspecified; K80.20 Calculus of gallbladder without cholecystitis without obstruction; R79.89 Other specified abnormal findings of blood chemistry; I77.6 Arteritis, unspecified; I10 Essential (primary) hypertension; I25.10 Atherosclerotic heart disease of native coronary artery without angina pectoris; I48.0 Paroxysmal atrial fibrillation; F03.90 Unspecified dementia, unspecified severity, without behavioral disturbance, psychotic disturbance, mood disturbance, and anxiety; Z85.46 Personal history of malignant neoplasm of prostate; Z79.01 Long term (current) use of anticoagulants; Z95.5 Presence of coronary angioplasty implant and graft; Z90.79 Acquired absence of other genital organ(s); Z96.0 Presence of urogenital implants; Z87.891 Personal history of nicotine dependence; Z20.822 Contact with and (suspected) exposure to COVID-19
CPT/HCPCS: A9537; J2805; Q3014; Q9967

== ENCOUNTER 2021-06-29 08:06 | Emergency (ER) | payer MEDICARE ==
[2021-06-29] VITALS (12 sets, daily range): BP systolic 122–147; BP diastolic 72–96
[~2021-06-29] VITALS: Ht 177.8 cm; Wt 82.3 kg
[~2021-06-29 08:06] MED LIST changes: +AMOX/K CLAV875 M1 PO; +ARNUITY EL50 MCG/ACT NS
[2021-06-29] MEDS ORDERED: MELOXICAM15 MG PO (10:33)
[2021-06-29] MEDS ORDERED: PREDNISONE20 MG PO (10:33)
== END 2021-06-29 11:31 | disposition home or self-care (01) ==
LOC: ED 08:06
DX: S69.92XA Unspecified injury of left wrist, hand and finger(s), initial encounter (principal); I10 Essential (primary) hypertension; X58.XXXA Exposure to other specified factors, initial encounter; Z95.5 Presence of coronary angioplasty implant and graft